=== PATIENT | female | born 1965 | race African-American/Black ===

== ENCOUNTER 2025-08-22 22:43 | Inpatient (IN) | payer OTHER ==
[~2025-08-22] VITALS: Ht 170.2 cm; Wt 59.1 kg
--- NOTE | 2025-08-22 23:26 | ED.PDOC ---
Sickle cell HPI Comments 59 y/o F, with a Hx of sickle cell and HTN, is BIBA for c/c of generalized body aches and abdominal pain. Patient reports on progressively worsening pain following initial, unprovoked and atraumatic onset 2x days ago. Pain is commented to feel similar to previous sickle cell crisis onset, which was 4x years ago. Denies any further acute symptoms. Per EMS personnel, patient was found hypertensive on scene, with a systolic pressure in 170's range. Chief Complaint: Abdominal Pain Time Seen by MD: 23:00 Reviewed Notes: Nurses Notes, Yard Conductor Notes, Medications, Allergies Information Source: Patient, Emergency Med Personnel Mode of Arrival: Ambulatory Severity: Moderate Timing: Days Duration: Since onset Prehospital treatment: 12 Lead EKG, Laser Cutter Past Medical History PAST MEDICAL HISTORY: HTN Past Medical History (Other): sickle cell Surgical History: Denies all surgeries RETAIL MARKETING COORDINATOR History: Denies all RETAIL MARKETING COORDINATOR Hx Family History Family History: Unknown Social History Smoker: Non-Smoker Alcohol: Denies ETOH Use Drugs: Denies Drug Use Lives In: Home All Other Systems: Reviewed and Negative (Comprehensive systems review obtained and negative except for what is stated in the HPI) Physical Exam General Appearance: Moderate Distress HEENT: Normal ENT Inspection, Pharynx Normal, TMs Normal Neck: Full Range of Motion, Non-Tender, Normal, Normal Inspection Respiratory: Chest Non-Tender, Lungs Clear, No Accessory Muscle Use, No Respiratory Distress, Normal Breath Sounds Cardiovascular: No Edema, No JVD, No Murmur, No Gallop, Normal Peripheral Pulses, Regular Rate/Rhythm Breast Exam: Deferred Gastrointestinal: No Organomegaly, Non Tender, No Pulsatile Mass, Normal Bowel Sounds, Soft Genitalia: Deferred Pelvic: Deferred Rectal: Deferred Extremities: No calf tenderness, Normal capillary refill, Normal inspection, Normal range of motion, Non-tender, No pedal edema Musculoskeletal : Apperance: Normal Neurologic: Alert, cell phone repair technician II-XII nml as Tested, No Motor Deficits, Normal Affect, Normal Mood, No Sensory Deficits Cerebellar Function: Normal Reflexes: Normal Skin: Dry, Normal Color, Warm Peripheral Pulses: 3+ Radial (R), 3+ Radial (L) Lymphatic: No Adenopathy Was a procedure done? Was a procedure done?: No Sickle cell Differential Dx Differential Diagnosis: Acute Chest Syndrome, Aplastic Crisis, Vasoocculsive Crisis, Meningitis, Osteomyelitis, Sepsis, Septic Arthritis X-Ray, Labs, Meds, VS Vital Signs Date Time Temp Pulse Resp B/P (MAP) Pulse Ox O2 Delivery O2 Flow Rate FiO2 08/23/25 02:47 182/84 08/23/25 02:18 97.7 80 19 178/85 (116) 90 97.7 08/23/25 02:15 18 88 Room Air* 0 21 08/23/25 00:11 67 18 151/85 08/22/25 22:51 99.0 147 20 52/113 96 99.0 08/22/25 22:43 97.8 86 20 127/86 99 97.8 Lab Test 08/23/25 01:08 Range/Units White Blood Count 7.4 4.4-10.8 10^3/uL Red Blood Count 2.54 L 4.0-5.20 10^6/uL Hemoglobin 9.7 L 12.2-16.2 g/dL Hematocrit 29.4 L 36.0-46.0 % Mean Corpuscular Volume 115.9 H 80.0-100.0 fL Mean Corpuscular Hemoglobin 38.1 H 28.0-32.0 pg Mean Corpuscular Hemoglobin Concent 32.9 32.0-36.0 g/dL Red Cell Distribution Width 17.9 H 11.8-14.3 % Platelet Count 235 140-450 10^3/uL Mean Platelet Volume 9.0 6.9-10.8 fL Neutrophils (%) (Auto) 70.3 37.0-80.0 % Lymphocytes (%) (Auto) 23.0 10.0-50.0 % Monocytes (%) (Auto) 2.3 0.0-12.0 % Eosinophils (%) (Auto) 1.3 0.0-7.0 % Basophils (%) (Auto) 3.1 H 0.0-2.0 % Neutrophils # (Auto) 5.2 1.6-8.6 10 ^3/uL Lymphocytes # (Auto) 1.7 0.4-5.4 10 ^3/uL Monocytes # (Auto) 0.2 0-1.3 10 ^3/uL Eosinophils # (Auto) 0.1 0-0.8 10 ^3/uL Basophils # (Auto) 0.2 0-0.2 10 ^3/uL Nucleated Red Blood Cells 2.1 % Reticulocyte Count (auto) 5.99 H 0.5-1.5 % Sodium Level 144 136-145 mmol/L Potassium Level 5.8 *H 3.5-5.1 mmol/L Chloride Level 114 H 98-107 mmol/L Carbon Dioxide Level 17 L 20-31 mmol/L Anion Gap 13 5-15 Blood Urea Nitrogen 56 H 9-23 mg/dL Creatinine 2.92 H 0.550-1.02 mg/dL Glomerular Filtration Rate Calc 18 >90 mL/min BUN/Creatinine Ratio 19.2 10.0-20.0 Serum Glucose 137 H 74-106 mg/dL Calcium Level 9.5 8.7-10.4 mg/dL Troponin I High Sensitivity 11 </=34 ng/L Current Medications Medications (Trade) Dose Ordered Sig/Shaista Route Start Time Stop Time Status Last Admin Ondansetron HCl (Zofran) 4 mg ONCE ONCE IV 08/22/25 23:15 08/22/25 23:16 DC 08/23/25 00:11 Sodium Chloride 1,000 ml @ 1,000 mls/hr Q1H ONCE IVB 08/22/25 23:15 08/23/25 00:14 DC 08/23/25 00:11 Morphine Sulfate 4 mg ONCE ONCE IV 08/22/25 23:15 08/22/25 23:16 DC 08/23/25 00:11 Sodium Chloride 1,000 ml @ 1,000 mls/hr Q1H ONCE IV 08/23/25 02:00 08/23/25 02:59 DC 08/23/25 02:47 Albuterol (Ventolin Medneb) 20 mg ONCE ONCE NEB 08/23/25 02:00 08/23/25 02:01 DC 08/23/25 02:26 Sodium Bicarbonate 50 ml ONCE ONCE IV 08/23/25 02:00 08/23/25 02:01 DC 08/23/25 02:47 Furosemide (Lasix Injection) 20 mg ONCE ONCE IV 08/23/25 02:00 08/23/25 02:01 DC 08/23/25 02:47 Calcium Gluconate/ Sodium Chloride 50 ml @ 120 mls/hr ONCE ONCE IV 08/23/25 02:00 08/23/25 02:24 DC 08/23/25 02:46 Zirconium Oxide (Lokelma) 10 gm ONCE ONCE PO 08/23/25 02:00 08/23/25 02:01 DC 08/23/25 02:46 Patient alert. Complaining of generalized body pain. Vitals stable. Answering questions. Establish intravenous access. Was given fluids. Was given morphine. Was given Zofran. Sickle cell crisis. Potassium elevated. BUN creatinine elevated. Acute kidney injury. Hyperkalemia treatment. Reticulocyte count elevated. Explained to the patient. Continue monitoring. [place] approved inpatient admission [id number]. Time of 1ST Reevaluation: 00:00 Reevaluation 1ST: Unchanged Patient Education/Counseling: Diagnosis, Treatment Family Education/Counseling: No Family Present Departure 1 Departure Time of Disposition: 23:32 Impression: Primary Impression: Sickle cell crisis Additional Impressions: Hyperkalemia Acute tubular necrosis Disposition: ADMITTED INPATIENT Admit to: Med Surg Condition: Guarded Critical Care Note Critical Care Time?: Yes (90 min-critical care time only) Stability Stability form required: No Heart Score Heart Score: Heart Score Response (Comments) Value History N/A 0 EKG N/A 0 Age N/A 0 Risk Factors N/A 0 Troponin N/A 0 Total 0 I personally scribed for VINCE CORRALES MD ([email or web address]) on 08/22/25 at 23:26. Electronically submitted by Kojo Arambula ([email or web address]). VINCE CORRALES MD Aug 22, 2025 23:26
[2025-08-23] MEDS: ONDANSETRON HCL 4 MG/2 ML VIAL IV ONE ×2 (00:11→04:12)
[2025-08-23] MEDS: MORPHINE SULFATE 4 MG/ML SYR/VIAL IV ONE (00:11)
[2025-08-23] MEDS: SODIUM CHLORIDE 0.9% 1,000 ML IVB ONE (00:11)
[2025-08-23 01:24] LABS: Hematocrit 29.4 % (36.0-46.0); Hemoglobin 9.7 g/dL (12.2-16.2); Mean Corpuscular Hemoglobin 38.1 pg (28.0-32.0); Mean Corpuscular Volume 115.9 fL (80.0-100.0); Nucleated Red Blood Cells % 2.1 %
[2025-08-23 01:31] LABS: Sodium 144 mmol/L (136-145)
[2025-08-23 01:32] LABS: Anion Gap 13 (5-15); Calcium 9.5 mg/dL (8.7-10.4)
[2025-08-23 01:37] LABS: BUN/Creatinine Ratio 19.2 (10.0-20.0)
[2025-08-23 01:40] LABS: Blood Urea Nitrogen 56 mg/dL (9-23); Carbon Dioxide 17 mmol/L (20-31); Chloride 114 mmol/L (98-107); Glucose 137 mg/dL (74-106)
[2025-08-23 01:42] LABS: Potassium 5.8 mmol/L (3.5-5.1)
[2025-08-23] MEDS: SODIUM CHLORIDE 0.9% 1,000 ML IV ONE ×3 (02:00→02:47)
[2025-08-23] MEDS: ALBUTEROL SULF 2.5 MG/0.5ML(0.5%) NEB SOLN NEB ONE (02:26)
[2025-08-23] MEDS: CALCIUM GLUC 1,000mg/50ml-NS 50 ML IV ONE (02:46)
[2025-08-23] MEDS: SODIUM ZIRCONIUM CYCL 10 GM PAK PO ONE (02:46)
[2025-08-23] MEDS: FUROSEMIDE 20 MG/2 ML VIAL IV ONE (02:47)
[2025-08-23] MEDS: SODIUM BICARB 8.4% 50Meq/50ml SYR INJ IV ONE (02:47)
[2025-08-23] MEDS: InsuLIN REG 1unit/0.01ml Soln (100units/ml) IV ONE (03:16)
[2025-08-23] MEDS: DEXTROSE (50%) 50ML SYRG IV ONE (03:20)
[2025-08-23] MEDS: HYDROmorphone HCL 2 MG/ML VL/or syr IV ONE (04:04)
[2025-08-23] MEDS ORDERED: MORPHINE SULFATE INJ 2 MG/ml SYRG IV PRN ×2 (04:30)
[2025-08-23] MEDS ORDERED: ACETAMINOPHEN 325 MG TAB PO PRN (04:30)
[2025-08-23] MEDS ORDERED: NITROGLYCERIN 0.4 MG SL TAB SL PRN (04:30)
--- NOTE | 2025-08-23 04:40 | DVHHP2 ---
History of Present Illness Reason for Visit: Sickle cell crisis History of Present Illness The patient is a 59-year-old female with past medical history of sickle cell anemia and hypertension who presented to [facility] with complaint of generalized weakness. Patient reports she has been experiencing generalized w eakness for the past 2 days, associated with abdominal pain, hypoxia, feeling similar to previous sickle cell crisis onset 4 years ago, getting worse today that prompted this visit. Patient was seen and evaluated in the ED, laboratory data shows WBC 7.4, hemoglobin 9.7, hematocrit 29.4, platelets 235, Retic count 5.99, sodium 144, potassium 5.8, BUN 26, creatinine 2.92, glucose 137, calcium 9.5, troponin 11, blood pressure 180/98 trending down to 118/67, heart rate 80, temperature 97.7 F, O2 saturation 98% on oxygen. Please see medication orders section in the computer. On my assessment, patient denied chest pain, dizziness, headache, diaphoresis, currently on oxygen, no abdominal pain, diarrhea, nausea, vomiting, no fever, no chills. Patient was admitted for further evaluation and medical management. Past Medical History HTN, Sickle cell Past Surgical History Denies all surgeries Family History Reviewed, noncontributory to the management of this case. Past Social History The patient lives at home, denies smoking, alcohol or illicit drugs abuse. Review of Systems Constitutional: Yes: Weakness; No: Fever, Chills, Sweats, Malaise, Other Eyes: No: Pain, Vision change, Conjunctivae inflammation, Eyelid inflammation, Other, Redness ENT: No: Ear pain, Ear discharge, Nose pain, Nose discharge, Nose congestion, Mouth pain, Mouth swelling, Throat pain, Throat swelling, Other Respiratory: Shortness of breath, Other (SOB at rest); No: Cough, Dry, SOB with excertion, Wheezing, Hemoptysis, Pleuritic Pain, Sputum, Wheezing Cardiovascular: No: Chest Pain, Palpitations, Orthopnea, Paroxysmal Noc. Dyspnea, Edema, Lt Headedness, Other Gastrointestinal: Abdominal Pain; No: Nausea, Vomiting, Diarrhea, Constipation, Melena, Hematochezia, Other Genitourinary: No Dysuria, No Frequency, No Incontinence, No Hematuria, No Retention, No Other Musculoskeletal: No: other, neck pain, shoulder pain, arm pain, back pain, hand pain, leg pain, foot pain Skin: No: Rash, Lesions, Jaundice, Bruising, Other Neurological: No: Weakness, Numbness, Incoordination, Change in speech, Confusion, Seizures, Other Allergies: Coded Allergies: NO KNOWN ALLERGIES (Unverified , 08/22/25) Exam Vital Signs Vital Signs Date Time Temp Pulse Resp B/P (MAP) Pulse Ox O2 Delivery O2 Flow Rate FiO2 08/23/25 04:04 107 15 180/98 08/23/25 02:18 97.7 90 97.7 08/23/25 02:15 Room Air* 0 21 General Appearance: Alert, Oriented X3, Cooperative, No acute distress HEENT: Atraumatic, PERRLA, EOMI, Mucous membr. moist/pink Respiratory: Normal air movement Cardiovascular: Regular rate, Normal S1, Normal S2, No murmurs Abdominal: Normal bowel sounds, Soft, No tenderness, No hepatospenomegaly, No masses Extremities: No clubbing, No cyanosis, No edema, Normal pulses, No tenderness/swelling Skin: No rashes, No breakdown, No significant lesion Neuro: Normal speech, Normal tone, Sensation intact, Cranial nerves 3-12 NL, Reflexes 2+, Other (Generalized weakness) Psych/Mental Status: Mental status NL, Mood NL Labs/Xrays Labs Test 08/23/25 03:11 08/23/25 01:08 Range/Units POC Glucose 208 H 70-106 mg/dl White Blood Count 7.4 4.4-10.8 10^3/uL Red Blood Count 2.54 L 4.0-5.20 10^6/uL Hemoglobin 9.7 L 12.2-16.2 g/dL Hematocrit 29.4 L 36.0-46.0 % Mean Corpuscular Volume 115.9 H 80.0-100.0 fL Mean Corpuscular Hemoglobin 38.1 H 28.0-32.0 pg Mean Corpuscular Hemoglobin Concent 32.9 32.0-36.0 g/dL Red Cell Distribution Width 17.9 H 11.8-14.3 % Platelet Count 235 140-450 10^3/uL Mean Platelet Volume 9.0 6.9-10.8 fL Neutrophils (%) (Auto) 70.3 37.0-80.0 % Lymphocytes (%) (Auto) 23.0 10.0-50.0 % Monocytes (%) (Auto) 2.3 0.0-12.0 % Eosinophils (%) (Auto) 1.3 0.0-7.0 % Basophils (%) (Auto) 3.1 H 0.0-2.0 % Neutrophils # (Auto) 5.2 1.6-8.6 10 ^3/uL Lymphocytes # (Auto) 1.7 0.4-5.4 10 ^3/uL Monocytes # (Auto) 0.2 0-1.3 10 ^3/uL Eosinophils # (Auto) 0.1 0-0.8 10 ^3/uL Basophils # (Auto) 0.2 0-0.2 10 ^3/uL Nucleated Red Blood Cells 2.1 % Reticulocyte Count (auto) 5.99 H 0.5-1.5 % Sodium Level 144 136-145 mmol/L Potassium Level 5.8 *H 3.5-5.1 mmol/L Chloride Level 114 H 98-107 mmol/L Carbon Dioxide Level 17 L 20-31 mmol/L Anion Gap 13 5-15 Blood Urea Nitrogen 56 H 9-23 mg/dL Creatinine 2.92 H 0.550-1.02 mg/dL Glomerular Filtration Rate Calc 18 >90 mL/min BUN/Creatinine Ratio 19.2 10.0-20.0 Serum Glucose 137 H 74-106 mg/dL Calcium Level 9.5 8.7-10.4 mg/dL Troponin I High Sensitivity 11 </=34 ng/L SEPSIS Sepsis Screen Date sepsis recognized/suspect: Aug 22, 2025 Time Sepsis recognized/suspect: 2254 Recent Procedure: No On Antibiotic Therapy: No Respiratory Rate >20: No Heart Rate >90: No Temp<36 C (96.8 F) or >38.3 C: No SBP <90 or MAP <65 mmHG: No New Acute Mental Status Change: No Is the patient on CPAP, BIPAP,: No Physician Orders Urinalysis (08/22/25 23:07) Sodium Chloride 0.9% (08/22/25 23:15) Sodium Chloride 0.9% (08/23/25 02:00) Potassium (08/23/25 05:48) Vital Signs Date Time Temp Pulse Resp B/P (MAP) Pulse Ox O2 Delivery O2 Flow Rate FiO2 08/23/25 04:04 107 15 180/98 08/23/25 02:47 182/84 08/23/25 02:18 97.7 80 19 178/85 (116) 90 97.7 08/23/25 02:15 18 88 Room Air* 0 21 08/23/25 00:11 67 18 151/85 08/22/25 22:51 99.0 147 20 52/113 96 99.0 08/22/25 22:43 97.8 86 20 127/86 99 97.8 Laboratory Tests Test 08/23/25 01:08 White Blood Count 7.4 10^3/uL (4.4-10.8) Medications Medications Dose Ordered Sig/Shaista Route Start Time Stop Time Status Last Admin Dose Admin Albuterol 20 mg ONCE ONCE NEB 08/23/25 02:00 08/23/25 02:01 DC 08/23/25 02:26 20 MG Calcium Gluconate/ Sodium Chloride 50 ml @ 120 mls/hr ONCE ONCE IV 08/23/25 02:00 08/23/25 02:24 DC 08/23/25 02:46 120 MLS/HR Dextrose 50 ml ONCE ONCE IV 08/23/25 02:00 08/23/25 02:01 DC 08/23/25 03:20 50 ML Furosemide 20 mg ONCE ONCE IV 08/23/25 02:00 08/23/25 02:01 ND 08/23/25 02:47 20 MG Hydromorphone HCl 1 mg ONCE ONCE IV 08/23/25 03:30 08/23/25 03:32 DC 08/23/25 04:04 1 MG Insulin Human Regular 10 units ONCE ONCE IV 08/23/25 02:00 08/23/25 02:01 ND 08/23/25 03:16 10 UNITS Morphine Sulfate 4 mg ONCE ONCE IV 08/22/25 23:15 08/22/25 23:16 DC 08/23/25 00:11 4 MG Ondansetron HCl 4 mg ONCE ONCE IV 08/22/25 23:15 08/22/25 23:16 DC 08/23/25 00:11 4 MG Ondansetron HCl 4 mg ONCE ONCE IV 08/23/25 04:15 08/23/25 04:16 DC 08/23/25 04:12 4 MG Sodium Bicarbonate 50 ml ONCE ONCE IV 08/23/25 02:00 08/23/25 02:01 DC 08/23/25 02:47 50 ML Sodium Chloride 1,000 ml @ 1,000 mls/hr Q1H ONCE IV 08/23/25 02:00 08/23/25 02:59 DC 08/23/25 02:47 1,000 MLS/HR Sodium Chloride 1,000 ml @ 1,000 mls/hr Q1H ONCE IVB 08/22/25 23:15 08/23/25 00:14 DC 08/23/25 00:11 1,000 MLS/HR Zirconium Oxide 10 gm ONCE ONCE PO 08/23/25 02:00 08/23/25 02:01 DC 08/23/25 02:46 10 GM Assessment/Plan Assessment/Plan Sickle cell crisis Hyperkalemia Hypoxemia Hypertensive urgency Acute tubular necrosis Generalized weakness Plan 1. Admit to telemetry unit 2. Breathing treatment 3. Pain control management 4. Management of fluids and electrolytes 5. Consultation for Nephrology/hospitalist 6. Diagnostic tests chest x-ray 7. DVT prophylaxis-on SCDs 8. Repeat labs CBC, CMP in a.m. 9. Continue with current medical management 10. Treatment plan discussed with patient and RN. Patient verbalized understanding. Plan discussed with: Patient, Other (RN) Problem List: (1) Sickle cell crisis (2) Hyperkalemia (3) Hypoxemia (4) Hypertensive urgency (5) Acute tubular necrosis (6) Generalized weakness Date of Service: Aug 23, 2025 Billing Provider: JENNIFER GUTIERREZ DNP Common Visit Codes: [id number] INP/OBS CARE (HIGH) JENNIFER GUTIERREZ DNP Aug 23, 2025 04:40
[2025-08-23 05:28] LABS: Hematocrit 26.7 % (36.0-46.0); Hemoglobin 8.8 g/dL (12.2-16.2); Mean Corpuscular Hemoglobin 37.3 pg (28.0-32.0); Mean Corpuscular Volume 113.2 fL (80.0-100.0); Nucleated Red Blood Cells % 1.8 %
[2025-08-23 05:45] LABS: Alanine Aminotransferase 27 U/L (7-40); Albumin 3.9 g/dL (3.2-4.8); Alkaline Phosphatase 109 U/L (46-116); Anion Gap 19 (5-15); BUN/Creatinine Ratio 16.3 (10.0-20.0); Calcium 9.5 mg/dL (8.7-10.4); Potassium 3.9 mmol/L (3.5-5.1); Total Protein 6.8 g/dL (5.7-8.2)
[2025-08-23 05:46] LABS: Bilirubin, Total 0.6 mg/dL (0.2-1.0)
[2025-08-23 05:48] LABS: Blood Urea Nitrogen 48 mg/dL (9-23); Carbon Dioxide 16 mmol/L (20-31); Chloride 111 mmol/L (98-107); Glucose 282 mg/dL (74-106); Sodium 146 mmol/L (136-145)
[2025-08-23] MEDS: SODIUM CHLOR 0.9% PF (SALINE LOCK) 10ML VIAL/SYR IV SCH (06:27)
[2025-08-23 08:26] VITALS: PULSE 82; RESP 12; O2SAT 100
[2025-08-23 08:29] LABS: Urine Protein, UAD 1+ (Negative)
[2025-08-23] MEDS: METOPROLOL TARTRATE 25 MG TAB PO SCH ×2 (11:19→18:56)
[2025-08-23] MEDS: HYDROcodone-ACET 5/325MG TAB PO PRN (11:19)
[2025-08-23] MEDS: ONDANSETRON HCL 4 MG/2 ML VIAL IV PRN (11:20)
[2025-08-23] MEDS: MORPHINE SULFATE 4 MG/ML SYR/VIAL IV PRN (16:11)
[2025-08-23] MEDS ORDERED: MORPHINE SULFATE 4 MG/ML SYR/VIAL IV PRN (16:15)
[2025-08-23] MEDS: SODIUM CHLORIDE 0.9% 1,000 ML IV SCH (16:45)
--- NOTE | 2025-08-23 16:55 | DVHINCON2 ---
Date of service: Aug 23, 2025 Referring Physician Philipp Mccoy Reason for Consultation ELBA History of Present Illness 59 Y/O F with history of Sickle cell anemia, and hypertension presented with chief complaint of generalized weakness and abdominal pain. She is hypertensive in the ER. labs signifcant for Cr: 2.92 mg/dl (Unknown baseline Cr), K: 5.8 mmol/l, and Hb: 8.8 g/dl. She is admitted for sickle cell crisis. She was given Normal saline, and Morphine for pain management. Nephrology consulted for ELBA Past Medical History Sickle cell anemia HTN Allergies: Coded Allergies: NO KNOWN ALLERGIES (Unverified , 08/22/25) Current Medications Current Medications Medications (Trade) Dose Ordered Sig/Shaista Route PRN Reason Start Time Stop Time Status Last Admin Hydroxyurea (Hydrea Capsule) 500 mg DAILY PO 08/23/25 10:08/23/25 11:23 Metoprolol Tartrate (Lopressor Tablet) 25 mg BID PO 08/23/25 10:00 08/23/25 11:19 Amlodipine Besylate (Norvasc Tablet) 5 mg DAILY PO 08/23/25 10:00 08/23/25 11:20 Hydralazine HCl (Apresoline Injection) 10 mg Q6HP PRN IV SBP>150 08/23/25 04:30 Sodium Chloride (Saline Lock Ns) 10 ml Q8HR IV 08/23/25 06:00 08/23/25 14:00 Acetaminophen/ Hydrocodone Bitart ([place] 5/325MG Tab) 1 tab Q4HP PRN PO MODERATE PAIN (4-6 PAIN SCALE) 08/23/25 04:30 08/23/25 11:19 Ondansetron HCl (Zofran) 4 mg Q4HP PRN IV NAUSEA / VOMITING 08/23/25 04:30 08/23/25 16:09 Docusate Sodium (Colace Capsule) 100 mg BIDPRN PRN PO FOR CONSTIPATION 08/23/25 04:30 Acetaminophen (Tylenol Tablet) 650 mg Q6HP PRN PO PAIN SCALE 1-3 OR TEMP>100.4 08/23/25 04:30 Morphine Sulfate 2 mg Q4HPRN PRN IV SEVERE PAIN (7-10 PAIN SCALE) 08/23/25 04:30 08/23/25 16:06 DC Nitroglycerin (Ntrostat Sublingual) 0.4 mg Q5MINP PRN SL FOR CHEST PAIN 08/23/25 04:30 Morphine Sulfate 2 mg Q30M PRN IV FOR CHEST PAIN 08/23/25 04:30 08/23/25 16:06 DC Morphine Sulfate 2 mg Q4HPRN PRN IV SEVERE PAIN (7-10 PAIN SCALE) 08/23/25 16:15 08/23/25 16:11 Morphine Sulfate 2 mg Q30M PRN IV FOR CHEST PAIN 08/23/25 16:15 Review of Systems as per HPI, all other systems were reviewed and are negative. H&P Exam Vital Signs/I&O Vital Sign Date Time Temp Pulse Resp B/P (MAP) Pulse Ox O2 Delivery O2 Flow Rate FiO2 08/23/25 16:11 81 18 181/92 08/23/25 12:17 100 08/23/25 08:26 Nasal Cannula* 2 28 08/23/25 02:18 97.7 97.7 Physical Exam Gen: NAD,AAOx3 HEENT: NC,AT Lungs: CTA b/l Cardiac: RRR, no murmur Abd: soft, no tenderness Ext: no edema Neuro: No focal deficits Labs/Diagnostic Data Labs/Diagnostic Data Laboratory Tests Test 08/23/25 08:18 08/23/25 05:00 08/23/25 03:11 08/23/25 01:08 Range/Units Urine Color Colorless Yellow Urine Clarity Clear Clear Urine pH 5.5 5.0-9.0 Urine Specific [place] 1.009 1.001-1.035 Urine Protein 1+ H Negative Urine Ketones Negative Negative Urine Blood Negative Negative /uL Urine Nitrite Negative Negative Urine Bilirubin Negative Negative Urine Urobilinogen Normal Negative mg/dL Urine Leukocyte Esterase 1+ Negative /uL Urine RBC <1 0 - 4 /hpf Urine Microscopic WBC 8 H 0-5 /HPF Urine Squamous Epithelial Cells Few <5 /hpf Urine Bacteria None seen None Seen /hpf Urine Glucose 1+ H Normal mg/dL White Blood Count 8.8 7.4 4.4-10.8 10^3/uL Red Blood Count 2.36 L 2.54 L 4.0-5.20 10^6/uL Hemoglobin 8.8 L 9.7 L 12.2-16.2 g/dL Hematocrit 26.7 L 29.4 L 36.0-46.0 % Mean Corpuscular Volume 113.2 H 115.9 H 80.0-100.0 fL Mean Corpuscular Hemoglobin 37.3 H 38.1 H 28.0-32.0 pg Mean Corpuscular Hemoglobin Concent 33.0 32.9 32.0-36.0 g/dL Red Cell Distribution Width 17.6 H 17.9 H 11.8-14.3 % Platelet Count 237 235 140-450 10^3/uL Mean Platelet Volume 9.3 9.0 6.9-10.8 fL Neutrophils (%) (Auto) 76.9 70.3 37.0-80.0 % Lymphocytes (%) (Auto) 13.3 23.0 10.0-50.0 % Monocytes (%) (Auto) 6.1 2.3 0.0-12.0 % Eosinophils (%) (Auto) 1.8 1.3 0.0-7.0 % Basophils (%) (Auto) 1.9 3.1 H 0.0-2.0 % Neutrophils # (Auto) 6.8 5.2 1.6-8.6 10 ^3/uL Lymphocytes # (Auto) 1.2 1.7 0.4-5.4 10 ^3/uL Monocytes # (Auto) 0.5 0.2 0-1.3 10 ^3/uL Eosinophils # (Auto) 0.2 0.1 0-0.8 10 ^3/uL Basophils # (Auto) 0.2 0.2 0-0.2 10 ^3/uL Nucleated Red Blood Cells 1.8 2.1 % Sodium Level 146 H 144 136-145 mmol/L Potassium Level 3.9 5.8 *H 3.5-5.1 mmol/L Chloride Level 111 H 114 H 98-107 mmol/L Carbon Dioxide Level 16 L 17 L 20-31 mmol/L Anion Gap 19 H 13 5-15 Blood Urea Nitrogen 48 H 56 H 9-23 mg/dL Creatinine 2.94 H 2.92 H 0.550-1.02 mg/dL Glomerular Filtration Rate Calc 18 18 >90 mL/min BUN/Creatinine Ratio 16.3 19.2 10.0-20.0 Serum Glucose 282 H 137 H 74-106 mg/dL Calcium Level 9.5 9.5 8.7-10.4 mg/dL Total Bilirubin 0.6 0.2-1.0 mg/dL Aspartate Amino Transferase (AST) 38 13-40 U/L Alanine Aminotransferase (ALT) 27 7-40 U/L Alkaline Phosphatase 109 46-116 U/L Total Protein 6.8 5.7-8.2 g/dL Albumin 3.9 3.2-4.8 g/dL POC Glucose 208 H 70-106 mg/dl Reticulocyte Count (auto) 5.99 H 0.5-1.5 % Troponin I High Sensitivity 11 </=34 ng/L Assessment Assessment: ELBA , multifactorial , ATN, intravascular hemolysis, and ischemia reperfusion injury Sickle cell crisis Uncontrolled hypertension Hyperkalemia, resolved Metabolic acidosis Acute on chronic anemia Plan: Continue NS at 125 cc/h Lasix prn for fluid overload Continue Amlodipine 5 mg daily Increase Metoprolol to 50 mg PO BID start sodium bicarb 650 mgh PO BID monitor H&H and transfuse if Hb < 7 g/dl pain control Oxygen Continue Hydroxyurea Start Folic acid daily BMP Strict I&Os Plan discussed with: Patient ABDOULAYE MATA MD Aug 23, 2025 16:55
[2025-08-23 19:03] VITALS: PULSE 73; RESP 18; O2SAT 99
[2025-08-23] MEDS: hydrALAZINE HCL 20 MG/ML VL IV PRN (20:25)
[2025-08-23 22:10] VITALS: BP 164/78; PULSE 75; RESP 19; TEMP 98.4; O2SAT 93
[2025-08-23 22:30] VITALS: PULSE 75; RESP 19; O2SAT 93
[2025-08-23 22:50] VITALS: BP 164/78; PULSE 75; RESP 19; TEMP 98.4; O2SAT 93
[2025-08-24] VITALS (8 sets, daily range): BP systolic 134–178; BP diastolic 71–99; PULSE 64–83; RESP 16–20; TEMP 97.9–98.4; O2SAT 95–100
[2025-08-24] MEDS ORDERED: ALLO100T PO (01:35)
[2025-08-24] MEDS ORDERED: FOLI-119 PO (01:35)
[2025-08-24] MEDS ORDERED: EPO2I IV (01:35)
[2025-08-24] MEDS ORDERED: PRED20TA2 PO (01:35)
[2025-08-24] MEDS ORDERED: HYDR500C3 PO (01:35)
[2025-08-24] MEDS ORDERED: BUDE1AER16 IN (01:35)
[2025-08-24] MEDS ORDERED: LOSA-533 PO (01:35)
[2025-08-24] MEDS ORDERED: ALBU2TAB11 PO (01:35)
[2025-08-24] MEDS ORDERED: CALC0.25 PO (01:35)
[2025-08-24] MEDS ORDERED: CHOL500021 OR (01:35)
[2025-08-24 06:26] LABS: Alanine Aminotransferase 24 U/L (7-40); Anion Gap 13 (5-15); BUN/Creatinine Ratio 16.8 (10.0-20.0); Carbon Dioxide 22 mmol/L (20-31); Glucose 98 mg/dL (74-106); Hemoglobin 9.3 g/dL (12.2-16.2); Mean Corpuscular Hemoglobin 36.9 pg (28.0-32.0); Potassium 4.8 mmol/L (3.5-5.1); Total Protein 7.3 g/dL (5.7-8.2)
[2025-08-24 06:27] LABS: Albumin 4.1 g/dL (3.2-4.8); Bilirubin, Total 0.9 mg/dL (0.2-1.0)
[2025-08-24 06:28] LABS: Alkaline Phosphatase 123 U/L (46-116); Blood Urea Nitrogen 51 mg/dL (9-23); Calcium 10.8 mg/dL (8.7-10.4); Chloride 114 mmol/L (98-107); Hematocrit 28.1 % (36.0-46.0); Mean Corpuscular Volume 110.8 fL (80.0-100.0); Sodium 149 mmol/L (136-145)
[2025-08-24 07:00] LABS: Nucleated Red Blood Cells % 6.0 %; Total Cells Counted 100.0 (100)
[2025-08-24] MEDS: ALLOPURINOL 100 MG TAB PO SCH (08:57)
[2025-08-24] MEDS: FOLIC ACID 1 MG TAB PO SCH (08:57)
[2025-08-24] MEDS: DOCUSATE SOD 100 MG CAP PO PRN (13:11)
--- NOTE | 2025-08-24 17:28 | DVHPN2 ---
Subjective Patient is here for sickle cell crisis currently on pain management. Changes from previous H/P or p: No Changes Eyes: No Pain, No Vision change, No Conjunctivae inflammation, No Eyelid inflammation, No Other, No Redness ENT: No Ear pain, No Ear discharge, No Nose pain, No Nose discharge, No Nose congestion, No Mouth pain, No Mouth swelling, No Throat pain, No Throat swelling, No Other Cardiovascular: No Chest Pain, No Palpitations, No Orthopnea, No Paroxysmal Noc. Dyspnea, No Edema, No Lt Headedness, No Other Respiratory: No Cough, No Dry; Shortness of breath; No SOB with excertion, No Wheezing, No Hemoptysis, No Pleuritic Pain, No Sputum; Other (SOB at rest) Gastrointestinal: No Nausea, No Vomiting; Abdominal Pain; No Diarrhea, No Constipation, No Melena, No Hematochezia, No Other Genitourinary: No Dysuria, No Frequency, No Incontinence, No Hematuria, No Retention, No Other Musculoskeletal: No other, No neck pain, No shoulder pain, No arm pain, No back pain, No hand pain, No leg pain, No foot pain Skin: No Rash, No Lesions, No Jaundice, No Bruising, No Other Objective Vitals Vital Signs Date Time Temp Pulse Resp B/P (MAP) Pulse Ox O2 Delivery O2 Flow Rate FiO2 08/24/25 13:41 68 18 128/68 08/24/25 13:00 98.1 95 98.1 08/24/25 09:00 Nasal Cannula* 3 32 Intake/Output Intake and Output 08/24/25 07:00 Intake Total 250 ml Balance 250 ml Intake Oral 250 ml # Voids 4 Exam HEENT pupils are reactive Neck is supple CV is S1-S2 regular rate and rhythm Respiratory diminished breath sound bases GI posterior bowel sound Extremity no edema [employer] no motor deficits Medications Current Medications Medications Dose Ordered Sig/Shaista Route Start Time Stop Time Status Last Admin Dose Admin Hydroxyurea 500 mg DAILY PO 08/23/25 10:08/24/25 13:01 500 MG Amlodipine Besylate 5 mg DAILY PO 08/23/25 10:00 08/24/25 08:58 5 MG Hydralazine HCl 10 mg Q6HP PRN IV 08/23/25 04:30 08/23/25 20:25 10 MG Sodium Chloride 10 ml Q8HR IV 08/23/25 06:00 08/24/25 14:00 10 ML Acetaminophen/ Hydrocodone Bitart 1 tab Q4HP PRN PO 08/23/25 04:30 08/24/25 16:22 1 TAB Ondansetron HCl 4 mg Q4HP PRN IV 08/23/25 04:30 08/24/25 16:22 4 MG Docusate Sodium 100 mg BIDPRN PRN PO 08/23/25 04:30 08/24/25 13:11 100 MG Acetaminophen 650 mg Q6HP PRN PO 08/23/25 04:30 Nitroglycerin 0.4 mg Q5MINP PRN SL 08/23/25 04:30 Morphine Sulfate 2 mg Q4HPRN PRN IV 08/23/25 16:15 08/24/25 13:11 2 MG Morphine Sulfate 2 mg Q30M PRN IV 08/23/25 16:15 Metoprolol Tartrate 50 mg BID PO 08/23/25 16:45 08/24/25 08:58 50 MG Sodium Chloride 1,000 ml @ 125 mls/hr Q8H IV 08/23/25 16:45 08/24/25 09:03 125 MLS/HR Allopurinol 100 mg DAILY PO 08/24/25 10:00 08/24/25 08:57 100 MG Folic Acid 1 mg DAILY PO 08/24/25 10:00 08/24/25 08:57 1 MG Patient Own Medication 1 MWF@2100 [place] 08/25/25 21:00 Laboratory Results Laboratory Tests 08/24/25 05:45 Chemistry Test 08/24/25 05:45 Albumin 4.1 g/dL (3.2-4.8) Calcium Level 10.8 mg/dL (8.7-10.4) H Total Protein 7.3 g/dL (5.7-8.2) LFT Test 08/24/25 05:45 Alanine Aminotransferase (ALT) 24 U/L (7-40) Alkaline Phosphatase 123 U/L (46-116) H Aspartate Amino Transferase (AST) 33 U/L (13-40) Total Bilirubin 0.9 mg/dL (0.2-1.0) Urinalysis Test 08/23/25 08:18 Urine Color Colorless (Yellow) Urine Clarity Clear (Clear) Urine pH 5.5 (5.0-9.0) Urine Specific [place] 1.009 (1.001-1.035) Urine Protein 1+ (Negative) H Urine Ketones Negative (Negative) Urine Blood Negative /uL (Negative) Urine Nitrite Negative (Negative) Urine Bilirubin Negative (Negative) Urine Urobilinogen Normal mg/dL (Negative) Urine Leukocyte Esterase 1+ /uL (Negative) Urine RBC <1 /hpf (0 - 4) Urine Microscopic WBC 8 /HPF (0-5) H Urine Squamous Epithelial Cells Few /hpf (<5) Urine Bacteria None seen /hpf (None Seen) Urine Glucose 1+ mg/dL (Normal) H Assessment/Plan Assessment/Plan 59-year-old female with a known history of hypertension, sickle cell anemia presented to the hospital with generalized weakness and also abdominal pain and hypoxia found to have 1. Acute sickle cell crisis with the underlying sickle cell anemia 2. Acute hypoxic respiratory failure secondary to sickle cell crisis, continue O2 supplementation has been as IV hydration 3. Acute kidney injury suspected secondary to vasomotor nephropathy/ATN with the underlying CKD stage 4 4. Hypertensive urgency 5. Metabolic acidosis secondary to acute kidney injury 6. Normocytic 7. Hyper natremia -continue IV fluids, O2 supplementation, pain management, hypotensive meds -nephrology consultation. Plan discussed with: Patient My Orders Orders - AYDIN GORDON MD Procedure Category Date Status Time Patients Own PHA 08/25/25 In Process Medication 21:00 Date of Service: Aug 24, 2025 Billing Provider: AYDIN GORDON MD Common Visit Codes: [id number] INP/OBS CARE(MOD) AYDIN GORDON MD Aug 24, 2025 17:28
--- NOTE | 2025-08-24 18:41 | DVHPN2 ---
Progress Note - Dictate Date Seen: Aug 24, 2025 Medical Necessity Reason Pt with a Central, PICC or Fol: No Subjective no new symptoms vital signs Vital Sign Date Time Temp Pulse Resp B/P (MAP) Pulse Ox O2 Delivery O2 Flow Rate FiO2 08/24/25 17:31 160/82 08/24/25 17:00 98.4 75 20 99 98.4 08/24/25 09:00 Nasal Cannula* 3 32 Total Intake and Output 08/23/25 08/23/25 08/24/25 15:00 23:00 07:00 Intake Total 0 ml 100 ml 150 ml Balance 0 ml 100 ml 150 ml medications Current Medications Medications Dose Ordered Sig/Shaista Route Start Time Stop Time Status Last Admin Dose Admin Hydroxyurea 500 mg DAILY PO 08/23/25 10:00 08/24/25 13:01 500 MG Amlodipine Besylate 5 mg DAILY PO 08/23/25 10:00 08/24/25 08:58 5 MG Hydralazine HCl 10 mg Q6HP PRN IV 08/23/25 04:30 08/24/25 17:31 10 MG Sodium Chloride 10 ml Q8HR IV 08/23/25 06:00 08/24/25 14:00 10 ML Acetaminophen/ Hydrocodone Bitart 1 tab Q4HP PRN PO 08/23/25 04:30 08/24/25 16:22 1 TAB Ondansetron HCl 4 mg Q4HP PRN IV 08/23/25 04:30 08/24/25 16:22 4 MG Docusate Sodium 100 mg BIDPRN PRN PO 08/23/25 04:30 08/24/25 13:11 100 MG Acetaminophen 650 mg Q6HP PRN PO 08/23/25 04:30 Nitroglycerin 0.4 mg Q5MINP PRN SL 08/23/25 04:30 Morphine Sulfate 2 mg Q4HPRN PRN IV 08/23/25 16:15 08/24/25 13:11 2 MG Morphine Sulfate 2 mg Q30M PRN IV 08/23/25 16:15 Metoprolol Tartrate 50 mg BID PO 08/23/25 16:45 08/24/25 08:58 50 MG Sodium Chloride 1,000 ml @ 125 mls/hr Q8H IV 08/23/25 16:45 08/24/25 17:31 125 MLS/HR Allopurinol 100 mg DAILY PO 08/24/25 10:00 08/24/25 08:57 100 MG Folic Acid 1 mg DAILY PO 08/24/25 10:00 08/24/25 08:57 1 MG Patient Own Medication 1 MWF@2100 [place] 08/25/25 21:00 objective ELBA , multifactorial , ATN, intravascular hemolysis, and ischemia reperfusion injury Sickle cell crisis Uncontrolled hypertension Hyperkalemia, resolved Metabolic acidosis Acute on chronic anemia Plan: Continue NS at 125 cc/h Lasix prn for fluid overload Continue Amlodipine 5 mg daily Increase Metoprolol to 50 mg PO BID start sodium bicarb 650 mgh PO BID monitor H&H and transfuse if Hb < 7 g/dl pain control Oxygen Continue Hydroxyurea Start Folic acid daily BMP Strict I&Os laboratory and microbiology Laboratory Tests 08/24/25 05:45 Test 08/24/25 05:45 Range/Units Serum Glucose 98 74-106 mg/dL Assessment/Plan Assessment: ELBA , multifactorial , ATN, intravascular hemolysis, and ischemia reperfusion injury CKD stage IV Sickle cell crisis Hypernatremia Uncontrolled hypertension Hyperkalemia, resolved Metabolic acidosis Acute on chronic anemia Plan: Change IVF to 1/2 NS at 100 cc/h Lasix prn for fluid overload Increase Amlodipine 10 mg daily Continue Metoprolol to 50 mg PO BID start sodium bicarb 650 mgh PO BID monitor H&H and transfuse if Hb < 7 g/dl pain control Oxygen Continue Hydroxyurea Start Folic acid daily BMP Strict I&Os Plan discussed with: Patient ABDOULAYE MATA MD Aug 24, 2025 18:41
[2025-08-24] MEDS: SOD CHL 0.45% 1,000 ML IV SCH (19:44)
[2025-08-24] MEDS: SODIUM BICARBONATE 650 MG TAB PO SCH (21:39)
[2025-08-25] VITALS (8 sets, daily range): BP systolic 116–172; BP diastolic 63–92; PULSE 70–98; RESP 16–20; TEMP 98–99.6; O2SAT 95–100
--- NOTE | 2025-08-25 15:34 | DVHPN2 ---
Progress Note - Dictate Date Seen: Aug 25, 2025 Medical Necessity Reason Pt with a Central, PICC or Fol: No Subjective no new symptoms vital signs Vital Sign Date Time Temp Pulse Resp B/P (MAP) Pulse Ox O2 Delivery O2 Flow Rate FiO2 08/25/25 13:00 98.3 70 20 122/68 (86) 98 98.3 08/25/25 08:00 Nasal Cannula* 3 32 Total Intake and Output 08/24/25 08/24/25 08/25/25 14:59 22:59 06:59 Intake Total 100 ml 1600 ml 400 ml Output Total 1000 ml 350 ml Balance 100 ml 600 ml 50 ml medications Current Medications Medications Dose Ordered Sig/Shaista Route Start Time Stop Time Status Last Admin Dose Admin Hydroxyurea 500 mg DAILY PO 08/23/25 10:00 08/25/25 09:33 500 MG Hydralazine HCl 10 mg Q6HP PRN IV 08/23/25 04:30 08/24/25 17:31 10 MG Sodium Chloride 10 ml Q8HR IV 08/23/25 06:00 08/25/25 15:26 10 ML Acetaminophen/ Hydrocodone Bitart 1 tab Q4HP PRN PO 08/23/25 04:30 08/25/25 15:20 1 TAB Ondansetron HCl 4 mg Q4HP PRN IV 08/23/25 04:30 08/25/25 15:21 4 MG Docusate Sodium 100 mg BIDPRN PRN PO 08/23/25 04:30 08/25/25 09:47 100 MG Acetaminophen 650 mg Q6HP PRN PO 08/23/25 04:30 Nitroglycerin 0.4 mg Q5MINP PRN SL 08/23/25 04:30 Morphine Sulfate 2 mg Q4HPRN PRN IV 08/23/25 16:15 08/25/25 05:11 2 MG Morphine Sulfate 2 mg Q30M PRN IV 08/23/25 16:15 Metoprolol Tartrate 50 mg BID PO 08/23/25 16:45 08/25/25 09:33 50 MG Allopurinol 100 mg DAILY PO 08/24/25 10:00 08/25/25 09:32 100 MG Folic Acid 1 mg DAILY PO 08/24/25 10:00 08/25/25 09:31 1 MG Patient Own Medication 1 MWF@2100 [place] 08/25/25 21:00 Sodium Chloride 1,000 ml @ 100 mls/hr Q10H IV 08/24/25 18:45 08/25/25 05:13 100 MLS/HR Sodium Bicarbonate 650 mg BID PO 08/24/25 22:00 08/25/25 09:31 650 MG Amlodipine Besylate 10 mg DAILY PO 08/25/25 10:00 08/25/25 09:32 10 MG objective ELBA , multifactorial , ATN, intravascular hemolysis, and ischemia reperfusion injury Sickle cell crisis Uncontrolled hypertension Hyperkalemia, resolved Metabolic acidosis Acute on chronic anemia Plan: Continue NS at 125 cc/h Lasix prn for fluid overload Continue Amlodipine 5 mg daily Increase Metoprolol to 50 mg PO BID start sodium bicarb 650 mgh PO BID monitor H&H and transfuse if Hb < 7 g/dl pain control Oxygen Continue Hydroxyurea Start Folic acid daily BMP Strict I&Os laboratory and microbiology Laboratory Tests 08/24/25 05:45 Test 08/24/25 05:45 Range/Units Serum Glucose 98 74-106 mg/dL Assessment/Plan Assessment: ELBA , multifactorial , ATN, intravascular hemolysis, and ischemia reperfusion injury CKD stage IV (Baseline GFR ~ 19 ml/min on recent outpatient labs at [facility]) Sickle cell crisis Hypernatremia Uncontrolled hypertension Hyperkalemia, resolved Metabolic acidosis Acute on chronic anemia Plan: Continue IVF to 1/2 NS at 100 cc/h Lasix prn for fluid overload Continue Amlodipine 10 mg daily Continue Metoprolol to 50 mg PO BID Continue sodium bicarb 650 mgh PO BID monitor H&H and transfuse if Hb < 7 g/dl pain control Oxygen Continue Hydroxyurea Continue Folic acid daily BMP Strict I&Os Plan discussed with: Patient ABDOULAYE MATA MD Aug 25, 2025 15:34
--- NOTE | 2025-08-25 17:01 | DVHPN2 ---
Subjective Overnight events noted patient is still complaining of lot of generalized body pain. Changes from previous H/P or p: No Changes Eyes: No Pain, No Vision change, No Conjunctivae inflammation, No Eyelid inflammation, No Other, No Redness ENT: No Ear pain, No Ear discharge, No Nose pain, No Nose discharge, No Nose congestion, No Mouth pain, No Mouth swelling, No Throat pain, No Throat swelling, No Other Cardiovascular: No Chest Pain, No Palpitations, No Orthopnea, No Paroxysmal Noc. Dyspnea, No Edema, No Lt Headedness, No Other Respiratory: No Cough, No Dry; Shortness of breath; No SOB with excertion, No Wheezing, No Hemoptysis, No Pleuritic Pain, No Sputum; Other (SOB at rest) Gastrointestinal: No Nausea, No Vomiting; Abdominal Pain; No Diarrhea, No Constipation, No Melena, No Hematochezia, No Other Genitourinary: No Dysuria, No Frequency, No Incontinence, No Hematuria, No Retention, No Other Musculoskeletal: No other, No neck pain, No shoulder pain, No arm pain, No back pain, No hand pain, No leg pain, No foot pain Skin: No Rash, No Lesions, No Jaundice, No Bruising, No Other Objective Vitals Vital Signs Date Time Temp Pulse Resp B/P (MAP) Pulse Ox O2 Delivery O2 Flow Rate FiO2 08/25/25 13:00 98.3 70 20 122/68 (86) 98 98.3 08/25/25 08:00 Nasal Cannula* 3 32 Intake/Output Intake and Output 08/25/25 07:00 Intake Total 2100 ml Output Total 1350 ml Balance 750 ml Intake Oral 900 ml IV Total 1200 ml Output Urine Total 350 ml Stool Total 1000 ml Medications Current Medications Medications Dose Ordered Sig/Shaista Route Start Time Stop Time Status Last Admin Dose Admin Hydroxyurea 500 mg DAILY PO 08/23/25 10:00 08/25/25 09:33 500 MG Hydralazine HCl 10 mg Q6HP PRN IV 08/23/25 04:30 08/24/25 17:31 10 MG Sodium Chloride 10 ml Q8HR IV 08/23/25 06:00 08/25/25 15:26 10 ML Acetaminophen/ Hydrocodone Bitart 1 tab Q4HP PRN PO 08/23/25 04:30 08/25/25 15:20 1 TAB Ondansetron HCl 4 mg Q4HP PRN IV 08/23/25 04:30 08/25/25 15:21 4 MG Docusate Sodium 100 mg BIDPRN PRN PO 08/23/25 04:30 08/25/25 09:47 100 MG Acetaminophen 650 mg Q6HP PRN PO 08/23/25 04:30 Nitroglycerin 0.4 mg Q5MINP PRN SL 08/23/25 04:30 Morphine Sulfate 2 mg Q4HPRN PRN IV 08/23/25 16:15 08/25/25 05:11 2 MG Morphine Sulfate 2 mg Q30M PRN IV 08/23/25 16:15 Metoprolol Tartrate 50 mg BID PO 08/23/25 16:45 08/25/25 09:33 50 MG Allopurinol 100 mg DAILY PO 08/24/25 10:00 08/25/25 09:32 100 MG Folic Acid 1 mg DAILY PO 08/24/25 10:00 08/25/25 09:31 1 MG Patient Own Medication 1 MWF@2100 [place] 08/25/25 21:00 Sodium Chloride 1,000 ml @ 100 mls/hr Q10H IV 08/24/25 18:45 08/25/25 05:13 100 MLS/HR Sodium Bicarbonate 650 mg BID PO 08/24/25 22:00 08/25/25 09:31 650 MG Amlodipine Besylate 10 mg DAILY PO 08/25/25 10:00 08/25/25 09:32 10 MG Laboratory Results Laboratory Tests 08/24/25 05:45 Urinalysis Test 08/23/25 08:18 Urine Color Colorless (Yellow) Urine Clarity Clear (Clear) Urine pH 5.5 (5.0-9.0) Urine Specific [place] 1.009 (1.001-1.035) Urine Protein 1+ (Negative) H Urine Ketones Negative (Negative) Urine Blood Negative /uL (Negative) Urine Nitrite Negative (Negative) Urine Bilirubin Negative (Negative) Urine Urobilinogen Normal mg/dL (Negative) Urine Leukocyte Esterase 1+ /uL (Negative) Urine RBC <1 /hpf (0 - 4) Urine Microscopic WBC 8 /HPF (0-5) H Urine Squamous Epithelial Cells Few /hpf (<5) Urine Bacteria None seen /hpf (None Seen) Urine Glucose 1+ mg/dL (Normal) H Assessment/Plan Assessment/Plan 59-year-old female with a known history of hypertension, sickle cell anemia presented to the hospital with generalized weakness and also abdominal pain and hypoxia found to have 1. Acute sickle cell crisis with the underlying sickle cell anemia 2. Acute hypoxic respiratory failure secondary to sickle cell crisis, continue O2 supplementation has been as IV hydration 3. Acute kidney injury suspected secondary to vasomotor nephropathy/ATN with the underlying CKD stage 4 4. Hypertensive urgency 5. Metabolic acidosis secondary to acute kidney injury 6. Normocytic 7. Hyper natremia -continue IV fluids, O2 supplementation, pain management, hold losartan continue Norvasc and metoprolol. Plan discussed with: Patient Date of Service: Aug 25, 2025 Billing Provider: AYDIN GORDON MD Common Visit Codes: [id number] INP/OBS CARE(MOD) AYDIN GORDON MD Aug 25, 2025 17:01
[2025-08-25] MEDS: EPOETIN ALFA 20000 UNIT SC SCH (20:50)
[2025-08-26] VITALS (9 sets, daily range): BP systolic 117–140; BP diastolic 60–82; PULSE 82–93; RESP 17–82; TEMP 97.4–100.5; O2SAT 93–100
--- NOTE | 2025-08-26 07:29 | DVHPN2 ---
Progress Note - Dictate Date Seen: Aug 26, 2025 Medical Necessity Reason Pt with a Central, PICC or Fol: No Subjective no new symptoms vital signs Vital Sign Date Time Temp Pulse Resp B/P (MAP) Pulse Ox O2 Delivery O2 Flow Rate FiO2 08/26/25 05:30 84 16 123/74 08/26/25 05:00 98.3 96 98.3 08/25/25 20:00 Nasal Cannula* 3 32 Total Intake and Output 08/25/25 08/25/25 08/26/25 15:00 23:00 07:00 Intake Total 1000 ml 800 ml Output Total 550 ml Balance 450 ml 800 ml medications Current Medications Medications Dose Ordered Sig/Shaista Route Start Time Stop Time Status Last Admin Dose Admin Hydroxyurea 500 mg DAILY PO 08/23/25 10:00 08/25/25 09:33 500 MG Hydralazine HCl 10 mg Q6HP PRN IV 08/23/25 04:30 08/26/25 04:01 10 MG Sodium Chloride 10 ml Q8HR IV 08/23/25 06:00 08/26/25 05:35 10 ML Acetaminophen/ Hydrocodone Bitart 1 tab Q4HP PRN PO 08/23/25 04:30 08/26/25 03:59 1 TAB Ondansetron HCl 4 mg Q4HP PRN IV 08/23/25 04:30 08/25/25 15:21 4 MG Docusate Sodium 100 mg BIDPRN PRN PO 08/23/25 04:30 08/25/25 09:47 100 MG Acetaminophen 650 mg Q6HP PRN PO 08/23/25 04:30 Nitroglycerin 0.4 mg Q5MINP PRN SL 08/23/25 04:30 Morphine Sulfate 2 mg Q4HPRN PRN IV 08/23/25 16:15 08/26/25 05:00 2 MG Morphine Sulfate 2 mg Q30M PRN IV 08/23/25 16:15 Metoprolol Tartrate 50 mg BID PO 08/23/25 16:45 08/25/25 20:48 50 MG Allopurinol 100 mg DAILY PO 08/24/25 10:00 08/25/25 09:32 100 MG Folic Acid 1 mg DAILY PO 08/24/25 10:00 08/25/25 09:31 1 MG Patient Own Medication 1 MWF@2100 [place] 08/25/25 21:00 08/25/25 20:50 1 Sodium Chloride 1,000 ml @ 100 mls/hr Q10H IV 08/24/25 18:45 08/26/25 00:55 100 MLS/HR Sodium Bicarbonate 650 mg BID PO 08/24/25 22:00 08/25/25 20:48 650 MG Amlodipine Besylate 10 mg DAILY PO 08/25/25 10:00 08/25/25 09:32 10 MG objective ELBA , multifactorial , ATN, intravascular hemolysis, and ischemia reperfusion injury Sickle cell crisis Uncontrolled hypertension Hyperkalemia, resolved Metabolic acidosis Acute on chronic anemia Plan: Continue NS at 125 cc/h Lasix prn for fluid overload Continue Amlodipine 5 mg daily Increase Metoprolol to 50 mg PO BID start sodium bicarb 650 mgh PO BID monitor H&H and transfuse if Hb < 7 g/dl pain control Oxygen Continue Hydroxyurea Start Folic acid daily BMP Strict I&Os laboratory and microbiology Laboratory Tests 08/24/25 05:45 Test 08/24/25 05:45 Range/Units Serum Glucose 98 74-106 mg/dL Assessment/Plan Assessment: ELBA , multifactorial , ATN, intravascular hemolysis, and ischemia reperfusion injury CKD stage IV (Baseline GFR ~ 19 ml/min on recent outpatient labs at [facility]) Sickle cell crisis Hypernatremia Uncontrolled hypertension Hyperkalemia, resolved Metabolic acidosis Acute on chronic anemia Plan: Decrease IVF to 1/2 NS to 60 cc/h Lasix prn for fluid overload Continue Amlodipine 10 mg daily Continue Metoprolol to 50 mg PO BID Continue sodium bicarb 650 mgh PO BID monitor H&H and transfuse if Hb < 7 g/dl pain control Oxygen Continue Hydroxyurea Continue Folic acid daily BMP Strict I&Os Plan discussed with: Patient ABDOULAYE MATA MD Aug 26, 2025 07:29
[2025-08-26] MEDS: SOD CHL 0.45% 1,000 ML IV SCH (07:30)
[2025-08-26 10:00] LABS: Potassium 4.2 mmol/L (3.5-5.1)
[2025-08-26 10:01] LABS: Anion Gap 13 (5-15); Calcium 10.3 mg/dL (8.7-10.4); Carbon Dioxide 22 mmol/L (20-31)
[2025-08-26 10:06] LABS: BUN/Creatinine Ratio 17.4 (10.0-20.0); Blood Urea Nitrogen 55 mg/dL (9-23); Chloride 115 mmol/L (98-107); Glucose 99 mg/dL (74-106); Sodium 150 mmol/L (136-145)
--- NOTE | 2025-08-26 17:26 | DVHPN2 ---
Subjective Overnight events noted patient is still complaining of lot of generalized body pain. Changes from previous H/P or p: No Changes Eyes: No Pain, No Vision change, No Conjunctivae inflammation, No Eyelid inflammation, No Other, No Redness ENT: No Ear pain, No Ear discharge, No Nose pain, No Nose discharge, No Nose congestion, No Mouth pain, No Mouth swelling, No Throat pain, No Throat swelling, No Other Cardiovascular: No Chest Pain, No Palpitations, No Orthopnea, No Paroxysmal Noc. Dyspnea, No Edema, No Lt Headedness, No Other Respiratory: No Cough, No Dry; Shortness of breath; No SOB with excertion, No Wheezing, No Hemoptysis, No Pleuritic Pain, No Sputum; Other (SOB at rest) Gastrointestinal: No Nausea, No Vomiting; Abdominal Pain; No Diarrhea, No Constipation, No Melena, No Hematochezia, No Other Genitourinary: No Dysuria, No Frequency, No Incontinence, No Hematuria, No Retention, No Other Musculoskeletal: No other, No neck pain, No shoulder pain, No arm pain, No back pain, No hand pain, No leg pain, No foot pain Skin: No Rash, No Lesions, No Jaundice, No Bruising, No Other Objective Vitals Vital Signs Date Time Temp Pulse Resp B/P (MAP) Pulse Ox O2 Delivery O2 Flow Rate FiO2 08/26/25 13:01 97.7 86 18 126/77 (93) 100 97.7 08/26/25 08:00 Nasal Cannula* 3 32 Intake/Output Intake and Output 08/26/25 07:00 Intake Total 1800 ml Output Total 550 ml Balance 1250 ml Intake Oral 1200 ml IV Total 600 ml Output Urine Total 550 ml # Voids 4 Exam HEENT pupils are reactive Neck is supple CV is S1-S2 regular rate and rhythm Respiratory diminished breath sound bases GI posterior bowel sound Extremity no edema KNOCKER OUT no motor deficits Medications Current Medications Medications Dose Ordered Sig/Shaista Route Start Time Stop Time Status Last Admin Dose Admin Hydroxyurea 500 mg DAILY PO 08/23/25 10:00 08/26/25 09:52 500 MG Hydralazine HCl 10 mg Q6HP PRN IV 08/23/25 04:30 08/26/25 04:01 10 MG Sodium Chloride 10 ml Q8HR IV 08/23/25 06:00 08/26/25 14:22 10 ML Acetaminophen/ Hydrocodone Bitart 1 tab Q4HP PRN PO 08/23/25 04:30 08/26/25 11:37 1 TAB Ondansetron HCl 4 mg Q4HP PRN IV 08/23/25 04:30 08/25/25 15:21 4 MG Docusate Sodium 100 mg BIDPRN PRN PO 08/23/25 04:30 08/25/25 09:47 100 MG Acetaminophen 650 mg Q6HP PRN PO 08/23/25 04:30 Nitroglycerin 0.4 mg Q5MINP PRN SL 08/23/25 04:30 Morphine Sulfate 2 mg Q4HPRN PRN IV 08/23/25 16:15 08/26/25 09:52 2 MG Morphine Sulfate 2 mg Q30M PRN IV 08/23/25 16:15 Metoprolol Tartrate 50 mg BID PO 08/23/25 16:45 08/26/25 09:53 50 MG Allopurinol 100 mg DAILY PO 08/24/25 10:00 08/26/25 09:52 100 MG Folic Acid 1 mg DAILY PO 08/24/25 10:00 08/26/25 09:53 1 MG Patient Own Medication 1 MWF@2100 [place] 08/25/25 21:00 08/25/25 20:50 1 Sodium Bicarbonate 650 mg BID PO 08/24/25 22:00 08/26/25 09:53 650 MG Amlodipine Besylate 10 mg DAILY PO 08/25/25 10:00 08/26/25 09:54 10 MG Sodium Chloride 1,000 ml @ 60 mls/hr [id number] IV 08/26/25 07:30 08/26/25 07:30 60 MLS/HR Laboratory Results Laboratory Tests 08/24/25 05:45 08/26/25 05:25 Chemistry Test 08/26/25 05:25 Calcium Level 10.3 mg/dL (8.7-10.4) Urinalysis Test 08/23/25 08:18 Urine Color Colorless (Yellow) Urine Clarity Clear (Clear) Urine pH 5.5 (5.0-9.0) Urine Specific [place] 1.009 (1.001-1.035) Urine Protein 1+ (Negative) H Urine Ketones Negative (Negative) Urine Blood Negative /uL (Negative) Urine Nitrite Negative (Negative) Urine Bilirubin Negative (Negative) Urine Urobilinogen Normal mg/dL (Negative) Urine Leukocyte Esterase 1+ /uL (Negative) Urine RBC <1 /hpf (0 - 4) Urine Microscopic WBC 8 /HPF (0-5) H Urine Squamous Epithelial Cells Few /hpf (<5) Urine Bacteria None seen /hpf (None Seen) Urine Glucose 1+ mg/dL (Normal) H Assessment/Plan Assessment/Plan 59-year-old female with a known history of hypertension, sickle cell anemia presented to the hospital with generalized weakness and also abdominal pain and hypoxia found to have 1. Acute sickle cell crisis with the underlying sickle cell anemia 2. Acute hypoxic respiratory failure secondary to sickle cell crisis, continue O2 supplementation has been as IV hydration 3. Acute kidney injury suspected secondary to vasomotor nephropathy/ATN with the underlying CKD stage 4 4. Hypertensive urgency 5. Metabolic acidosis secondary to acute kidney injury 6. Normocytic 7. Hyper natremia -continue IV fluids, O2 supplementation, pain management, hold losartan continue Norvasc and metoprolol. Plan discussed with: Patient My Orders Orders - AYDIN GORDON MD Procedure Category Date Status Time Complete Blood Count LAB 08/27/25 Verified 04:00 Date of Service: Aug 26, 2025 Billing Provider: AYDIN GORDON MD Common Visit Codes: [id number] INP/OBS CARE(MOD) AYDIN GORDON MD Aug 26, 2025 17:26
[2025-08-27] VITALS (8 sets, daily range): BP systolic 109–137; BP diastolic 63–82; PULSE 73–99; RESP 17–82; TEMP 97.1–98.7; O2SAT 90–100
[2025-08-27 05:56] LABS: Potassium 4.3 mmol/L (3.5-5.1)
[2025-08-27 05:57] LABS: Anion Gap 13 (5-15); Carbon Dioxide 22 mmol/L (20-31)
[2025-08-27 05:58] LABS: Calcium 10.2 mg/dL (8.7-10.4)
[2025-08-27 06:03] LABS: BUN/Creatinine Ratio 16.4 (10.0-20.0); Glucose 98 mg/dL (74-106)
[2025-08-27 06:14] LABS: Blood Urea Nitrogen 55 mg/dL (9-23); Chloride 115 mmol/L (98-107); Sodium 150 mmol/L (136-145)
[2025-08-27 07:12] LABS: Hematocrit 20.8 % (36.0-46.0); Hemoglobin 7.2 g/dL (12.2-16.2); Mean Corpuscular Hemoglobin 37.5 pg (28.0-32.0); Mean Corpuscular Volume 108.4 fL (80.0-100.0)
[2025-08-27 08:08] LABS: Total Cells Counted 100.0 (100)
[2025-08-27 08:09] LABS: Anisocytosis Slight; Nucleated Red Blood Cells % 5.0 %; Stomatocytes Few
--- NOTE | 2025-08-27 17:03 | DVHPN2 ---
Subjective Overnight events noted patient is still complaining of lot of generalized body pain. Changes from previous H/P or p: No Changes Eyes: No Pain, No Vision change, No Conjunctivae inflammation, No Eyelid inflammation, No Other, No Redness ENT: No Ear pain, No Ear discharge, No Nose pain, No Nose discharge, No Nose congestion, No Mouth pain, No Mouth swelling, No Throat pain, No Throat swelling, No Other Cardiovascular: No Chest Pain, No Palpitations, No Orthopnea, No Paroxysmal Noc. Dyspnea, No Edema, No Lt Headedness, No Other Respiratory: No Cough, No Dry; Shortness of breath; No SOB with excertion, No Wheezing, No Hemoptysis, No Pleuritic Pain, No Sputum; Other (SOB at rest) Gastrointestinal: No Nausea, No Vomiting; Abdominal Pain; No Diarrhea, No Constipation, No Melena, No Hematochezia, No Other Genitourinary: No Dysuria, No Frequency, No Incontinence, No Hematuria, No Retention, No Other Musculoskeletal: No other, No neck pain, No shoulder pain, No arm pain, No back pain, No hand pain, No leg pain, No foot pain Skin: No Rash, No Lesions, No Jaundice, No Bruising, No Other Objective Vitals Vital Signs Date Time Temp Pulse Resp B/P (MAP) Pulse Ox O2 Delivery O2 Flow Rate FiO2 08/27/25 13:00 97.7 83 17 118/70 (86) 93 97.7 08/27/25 08:00 Nasal Cannula* 3 32 Intake/Output Intake and Output 08/27/25 07:00 Intake Total 800 ml Output Total 1100 ml Balance -300 ml Intake Oral 800 ml Output Urine Total 1100 ml # Voids 2 # Bowel Movements 2 Exam HEENT pupils are reactive Neck is supple CV is S1-S2 regular rate and rhythm Respiratory diminished breath sound bases GI posterior bowel sound Extremity no edema [employer] no motor deficits Medications Current Medications Medications Dose Ordered Sig/Shaista Route Start Time Stop Time Status Last Admin Dose Admin Hydroxyurea 500 mg DAILY PO 08/23/25 10:00 08/27/25 09:37 500 MG Hydralazine HCl 10 mg Q6HP PRN IV 08/23/25 04:30 08/26/25 04:01 10 MG Sodium Chloride 10 ml Q8HR IV 08/23/25 06:00 08/27/25 14:07 10 ML Acetaminophen/ Hydrocodone Bitart 1 tab Q4HP PRN PO 08/23/25 04:30 08/26/25 21:26 1 TAB Ondansetron HCl 4 mg Q4HP PRN IV 08/23/25 04:30 08/25/25 15:21 4 MG Docusate Sodium 100 mg BIDPRN PRN PO 08/23/25 04:30 08/25/25 09:47 100 MG Acetaminophen 650 mg Q6HP PRN PO 08/23/25 04:30 Nitroglycerin 0.4 mg Q5MINP PRN SL 08/23/25 04:30 Morphine Sulfate 2 mg Q4HPRN PRN IV 08/23/25 16:15 08/26/25 09:52 2 MG Morphine Sulfate 2 mg Q30M PRN IV 08/23/25 16:15 Metoprolol Tartrate 50 mg BID PO 08/23/25 16:45 08/27/25 09:36 50 MG Allopurinol 100 mg DAILY PO 08/24/25 10:00 08/27/25 09:37 100 MG Folic Acid 1 mg DAILY PO 08/24/25 10:00 08/27/25 09:35 1 MG Patient Own Medication 1 MWF@2100 SC 08/25/25 21:00 08/25/25 20:50 1 Sodium Bicarbonate 650 mg BID PO 08/24/25 22:00 08/27/25 09:35 650 MG Amlodipine Besylate 10 mg DAILY PO 08/25/25 10:00 08/27/25 09:37 10 MG Sodium Chloride 1,000 ml @ 60 mls/hr [id number] IV 08/26/25 07:30 08/26/25 23:57 60 MLS/HR Laboratory Results Laboratory Tests 08/27/25 05:14 Chemistry Test 08/27/25 05:14 Calcium Level 10.2 mg/dL (8.7-10.4) Urinalysis Test 08/23/25 08:18 Urine Color Colorless (Yellow) Urine Clarity Clear (Clear) Urine pH 5.5 (5.0-9.0) Urine Specific [place] 1.009 (1.001-1.035) Urine Protein 1+ (Negative) H Urine Ketones Negative (Negative) Urine Blood Negative /uL (Negative) Urine Nitrite Negative (Negative) Urine Bilirubin Negative (Negative) Urine Urobilinogen Normal mg/dL (Negative) Urine Leukocyte Esterase 1+ /uL (Negative) Urine RBC <1 /hpf (0 - 4) Urine Microscopic WBC 8 /HPF (0-5) H Urine Squamous Epithelial Cells Few /hpf (<5) Urine Bacteria None seen /hpf (None Seen) Urine Glucose 1+ mg/dL (Normal) H Assessment/Plan Assessment/Plan 59-year-old female with a known history of hypertension, sickle cell anemia presented to the hospital with generalized weakness and also abdominal pain and hypoxia found to have 1. Acute sickle cell crisis with the underlying sickle cell anemia 2. Acute hypoxic respiratory failure secondary to sickle cell crisis, continue O2 supplementation has been as IV hydration 3. Acute kidney injury suspected secondary to vasomotor nephropathy/ATN with the underlying CKD stage 4 4. Hypertensive urgency 5. Metabolic acidosis secondary to acute kidney injury 6. Normocytic anemia 7. Hyper natremia, improved -continue IV fluids, O2 supplementation, pain management, hold losartan continue Norvasc and metoprolol. Plan discussed with: Patient Date of Service: Aug 27, 2025 Billing Provider: AYDIN GORDON MD Common Visit Codes: [id number] INP/OBS CARE(MOD) AYDIN GORDON MD Aug 27, 2025 17:03
[2025-08-27] MEDS: D5W 5% 1,000 ML IV SCH (18:06)
--- NOTE | 2025-08-27 19:19 | DVHPN2 ---
Progress Note - Dictate Date Seen: Aug 27, 2025 Medical Necessity Reason Pt with a Central, PICC or Fol: No Subjective no new symptoms vital signs Vital Sign Date Time Temp Pulse Resp B/P (MAP) Pulse Ox O2 Delivery O2 Flow Rate FiO2 08/27/25 17:25 98.2 75 18 124/64 (84) 95 98.2 08/27/25 08:00 Nasal Cannula* 3 32 Total Intake and Output 08/26/25 08/26/25 08/27/25 15:00 23:00 07:00 Intake Total 600 ml 200 ml Output Total 400 ml 700 ml Balance 200 ml -500 ml medications Current Medications Medications Dose Ordered Sig/Shaista Route Start Time Stop Time Status Last Admin Dose Admin Hydroxyurea 500 mg DAILY PO 08/23/25 10:00 08/27/25 09:37 500 MG Hydralazine HCl 10 mg Q6HP PRN IV 08/23/25 04:30 08/26/25 04:01 10 MG Sodium Chloride 10 ml Q8HR IV 08/23/25 06:00 08/27/25 14:07 10 ML Acetaminophen/ Hydrocodone Bitart 1 tab Q4HP PRN PO 08/23/25 04:30 08/26/25 21:26 1 TAB Ondansetron HCl 4 mg Q4HP PRN IV 08/23/25 04:30 08/25/25 15:21 4 MG Docusate Sodium 100 mg BIDPRN PRN PO 08/23/25 04:30 08/25/25 09:47 100 MG Acetaminophen 650 mg Q6HP PRN PO 08/23/25 04:30 Nitroglycerin 0.4 mg Q5MINP PRN SL 08/23/25 04:30 Morphine Sulfate 2 mg Q4HPRN PRN IV 08/23/25 16:15 08/26/25 09:52 2 MG Morphine Sulfate 2 mg Q30M PRN IV 08/23/25 16:15 Metoprolol Tartrate 50 mg BID PO 08/23/25 16:45 08/27/25 09:36 50 MG Allopurinol 100 mg DAILY PO 08/24/25 10:00 08/27/25 09:37 100 MG Folic Acid 1 mg DAILY PO 08/24/25 10:00 08/27/25 09:35 1 MG Patient Own Medication 1 MWF@2100 [place] 08/25/25 21:00 08/25/25 20:50 1 Sodium Bicarbonate 650 mg BID PO 08/24/25 22:00 08/27/25 09:35 650 MG Amlodipine Besylate 10 mg DAILY PO 08/25/25 10:00 08/27/25 09:37 10 MG Dextrose 1,000 ml @ 75 mls/hr [id number] IV 08/27/25 17:45 08/27/25 18:06 75 MLS/HR objective ELBA , multifactorial , ATN, intravascular hemolysis, and ischemia reperfusion injury Sickle cell crisis Uncontrolled hypertension Hyperkalemia, resolved Metabolic acidosis Acute on chronic anemia Plan: Continue NS at 125 cc/h Lasix prn for fluid overload Continue Amlodipine 5 mg daily Increase Metoprolol to 50 mg PO BID start sodium bicarb 650 mgh PO BID monitor H&H and transfuse if Hb < 7 g/dl pain control Oxygen Continue Hydroxyurea Start Folic acid daily BMP Strict I&Os laboratory and microbiology Laboratory Tests 08/27/25 05:14 Test 08/27/25 05:14 Range/Units Serum Glucose 98 74-106 mg/dL Assessment/Plan Assessment: ELBA , multifactorial , ATN, intravascular hemolysis, and ischemia reperfusion injury CKD stage IV (Baseline GFR ~ 19 ml/min on recent outpatient labs at [place]) Sickle cell crisis Hypernatremia Uncontrolled hypertension Hyperkalemia, resolved Metabolic acidosis Acute on chronic anemia Plan: Change IVF to D5W at 75 cc/h Lasix prn for fluid overload Continue Amlodipine 10 mg daily Continue Metoprolol to 50 mg PO BID Continue sodium bicarb 650 mgh PO BID monitor H&H and transfuse if Hb < 7 g/dl pain control Oxygen Continue Hydroxyurea Continue Folic acid daily BMP Strict I&Os Plan discussed with: Patient, Spouse ABDOULAYE MATA MD Aug 27, 2025 19:19
[2025-08-27] MEDS ORDERED: EPOETIN ALFA 20000 UNIT SC SCH (21:00)
[2025-08-28 01:00] VITALS: BP 115/60; PULSE 65; RESP 19; TEMP 98.2; O2SAT 100
[2025-08-28 05:00] VITALS: BP 141/72; PULSE 65; RESP 20; TEMP 97.9; O2SAT 100
--- NOTE | 2025-08-28 07:14 | DVHPN2 ---
Progress Note - Dictate Date Seen: Aug 28, 2025 Medical Necessity Reason Pt with a Central, PICC or Fol: No Subjective no new symptoms vital signs Vital Sign Date Time Temp Pulse Resp B/P (MAP) Pulse Ox O2 Delivery O2 Flow Rate FiO2 08/28/25 05:00 97.9 65 20 141/72 (95) 100 97.9 08/27/25 20:00 Nasal Cannula* 2 28 Total Intake and Output 08/27/25 08/27/25 08/28/25 15:00 23:00 07:00 Intake Total 400 ml 1360 ml Output Total 1200 ml Balance -800 ml 1360 ml medications Current Medications Medications Dose Ordered Sig/Shaista Route Start Time Stop Time Status Last Admin Dose Admin Hydroxyurea 500 mg DAILY PO 08/23/25 10:00 08/27/25 09:37 500 MG Hydralazine HCl 10 mg Q6HP PRN IV 08/23/25 04:30 08/26/25 04:01 10 MG Sodium Chloride 10 ml Q8HR IV 08/23/25 06:00 08/28/25 05:24 10 ML Acetaminophen/ Hydrocodone Bitart 1 tab Q4HP PRN PO 08/23/25 04:30 08/26/25 21:26 1 TAB Ondansetron HCl 4 mg Q4HP PRN IV 08/23/25 04:30 08/25/25 15:21 4 MG Docusate Sodium 100 mg BIDPRN PRN PO 08/23/25 04:30 08/25/25 09:47 100 MG Acetaminophen 650 mg Q6HP PRN PO 08/23/25 04:30 Nitroglycerin 0.4 mg Q5MINP PRN SL 08/23/25 04:30 Morphine Sulfate 2 mg Q4HPRN PRN IV 08/23/25 16:15 08/26/25 09:52 2 MG Morphine Sulfate 2 mg Q30M PRN IV 08/23/25 16:15 Metoprolol Tartrate 50 mg BID PO 08/23/25 16:45 08/27/25 21:32 50 MG Allopurinol 100 mg DAILY PO 08/24/25 10:00 08/27/25 09:37 100 MG Folic Acid 1 mg DAILY PO 08/24/25 10:00 08/27/25 09:35 1 MG Patient Own Medication 1 MWF@2100 [place] 08/25/25 21:00 08/27/25 21:02 1 Sodium Bicarbonate 650 mg BID PO 08/24/25 22:00 08/27/25 21:32 650 MG Amlodipine Besylate 10 mg DAILY PO 08/25/25 10:00 08/27/25 09:37 10 MG Dextrose 1,000 ml @ 75 mls/hr [id number] IV 08/27/25 17:45 08/28/25 06:06 75 MLS/HR objective ELBA , multifactorial , ATN, intravascular hemolysis, and ischemia reperfusion injury Sickle cell crisis Uncontrolled hypertension Hyperkalemia, resolved Metabolic acidosis Acute on chronic anemia Plan: Continue NS at 125 cc/h Lasix prn for fluid overload Continue Amlodipine 5 mg daily Increase Metoprolol to 50 mg PO BID start sodium bicarb 650 mgh PO BID monitor H&H and transfuse if Hb < 7 g/dl pain control Oxygen Continue Hydroxyurea Start Folic acid daily BMP Strict I&Os laboratory and microbiology Laboratory Tests 08/27/25 05:14 Test 08/27/25 05:14 Range/Units Serum Glucose 98 74-106 mg/dL Assessment/Plan Assessment: ELBA , multifactorial , ATN, intravascular hemolysis, and ischemia reperfusion injury CKD stage IV (Baseline GFR ~ 19 ml/min on recent outpatient labs at [place]) Sickle cell crisis Hypernatremia Uncontrolled hypertension Hyperkalemia, resolved Metabolic acidosis Acute on chronic anemia Plan: Continue D5W at 75 cc/h Lasix prn for fluid overload Continue Amlodipine 10 mg daily Continue Metoprolol to 50 mg PO BID Continue sodium bicarb 650 mgh PO BID monitor H&H and transfuse if Hb < 7 g/dl pain control Oxygen Continue Hydroxyurea Continue Folic acid daily BMP Strict I&Os Plan discussed with: Patient ABDOULAYE MATA MD Aug 28, 2025 07:14
[2025-08-28 08:00] VITALS: PULSE 61
[2025-08-28 09:00] VITALS: BP 121/71; PULSE 63; RESP 19; TEMP 98.1; O2SAT 100
[2025-08-28 13:00] VITALS: BP 128/74; PULSE 67; RESP 18; TEMP 99.2; O2SAT 100
[2025-08-28] MEDS ORDERED: HYDR-4902 PO (16:35)
[2025-08-28] MEDS ORDERED: MET25T PO (16:35)
[2025-08-28] MEDS ORDERED: AML5T PO (16:35)
--- NOTE | 2025-08-28 16:40 | DVHDS2 ---
Discharge Summary Date of Admission Aug 23, 2025 at 04:29 Date of Discharge: Aug 28, 2025 Labs/Diagnostic Data: Laboratory Results Test 08/27/25 05:14 08/24/25 05:45 08/23/25 08:18 08/23/25 05:00 White Blood Count 9.8 10^3/uL (4.4-10.8) Red Blood Count 1.92 10^6/uL (4.0-5.20) Hemoglobin 7.2 g/dL (12.2-16.2) Hematocrit 20.8 % (36.0-46.0) Mean Corpuscular Volume 108.4 fL (80.0-100.0) Mean Corpuscular Hemoglobin 37.5 pg (28.0-32.0) Mean Corpuscular Hemoglobin Concent 34.6 g/dL (32.0-36.0) Red Cell Distribution Width 19.7 % (11.8-14.3) Platelet Count 153 10^3/uL (140-450) Mean Platelet Volume 9.4 fL (6.9-10.8) Neutrophils (%) (Auto) % (37.0-80.0) Lymphocytes (%) (Auto) % (10.0-50.0) Monocytes (%) (Auto) % (0.0-12.0) Basophils (%) (Auto) % (0.0-2.0) Neutrophils # (Auto) 10 ^3/uL (1.6-8.6) Lymphocytes # (Auto) 10 ^3/uL (0.4-5.4) Monocytes # (Auto) 10 ^3/uL (0-1.3) Differential Total Cells Counted 100.0 (100) Neutrophils % (Manual) 73 (37.0-80.0) Band Neutrophils % (Manual) 1 Lymphocytes % (Manual) 18 (10.0-50.0) Monocytes % (Manual) 7 (0-12) Eosinophils % (Manual) 1 (0-7) Basophils % (Manual) 0 (0.0-2.0) Metamyelocytes % (manual) 0 Myelocytes % (Manual) 0 Promyelocytes % (Manual) 0 Blast Cells % (Manual) 0 Nucleated Red Blood Cells 5.0 % Reactive Lymphocytes 0 Platelet Estimate Adequate Anisocytosis (manual) Slight Target Cells Few Stomatocytes Few Sodium Level 150 mmol/L (136-145) Potassium Level 4.3 mmol/L (3.5-5.1) Chloride Level 115 mmol/L (98-107) Carbon Dioxide Level 22 mmol/L (20-31) Anion Gap 13 (5-15) Blood Urea Nitrogen 55 mg/dL (9-23) Creatinine 3.36 mg/dL (0.550-1.02) Glomerular Filtration Rate Calc 15 mL/min (>90) BUN/Creatinine Ratio 16.4 (10.0-20.0) Serum Glucose 98 mg/dL (74-106) Calcium Level 10.2 mg/dL (8.7-10.4) Large Platelets Few Total Bilirubin 0.9 mg/dL (0.2-1.0) Aspartate Amino Transferase (AST) 33 U/L (13-40) Alanine Aminotransferase (ALT) 24 U/L (7-40) Alkaline Phosphatase 123 U/L (46-116) Total Protein 7.3 g/dL (5.7-8.2) Albumin 4.1 g/dL (3.2-4.8) Urine Color Colorless (Yellow) Urine Clarity Clear (Clear) Urine pH 5.5 (5.0-9.0) Urine Specific [place] 1.009 (1.001-1.035) Urine Protein 1+ (Negative) Urine Ketones Negative (Negative) Urine Blood Negative /uL (Negative) Urine Nitrite Negative (Negative) Urine Bilirubin Negative (Negative) Urine Urobilinogen Normal mg/dL (Negative) Urine Leukocyte Esterase 1+ /uL (Negative) Urine RBC <1 /hpf (0 - 4) Urine Microscopic WBC 8 /HPF (0-5) Urine Squamous Epithelial Cells Few /hpf (<5) Urine Bacteria None seen /hpf (None Seen) Urine Glucose 1+ mg/dL (Normal) Eosinophils (%) (Auto) 1.8 % (0.0-7.0) Eosinophils # (Auto) 0.2 10 ^3/uL (0-0.8) Basophils # (Auto) 0.2 10 ^3/uL (0-0.2) Test 08/23/25 03:11 08/23/25 01:08 POC Glucose 208 mg/dl (70-106) Reticulocyte Count (auto) 5.99 % (0.5-1.5) Troponin I High Sensitivity 11 ng/L (</=34) Other Laboratory Tests 08/27/25 05:14 Brief Hx & Hospital Course: 59-year-old female with a known history of hypertension, sickle cell anemia presented to the hospital with generalized weakness and also abdominal pain and hypoxia found to have acute sickle cell crisis with a underlying sickle cell anemia. Patient was put on O2 supplementation med nebs as well as IV hydration. Patient has had hyponatremia which is slowly improving and metabolic acidosis improved as well. Patient does have known history of CKD stage 4. Condition at Discharge: Stable Final Diagnosis/Problems List 59-year-old female with a known history of hypertension, sickle cell anemia presented to the hospital with generalized weakness and also abdominal pain and hypoxia found to have 1. Acute sickle cell crisis with the underlying sickle cell anemia 2. Acute hypoxic respiratory failure secondary to sickle cell crisis, continue O2 supplementation has been as IV hydration 3. Acute kidney injury suspected secondary to vasomotor nephropathy/ATN with the underlying CKD stage 4 4. Hypertensive urgency 5. Metabolic acidosis secondary to acute kidney injury 6. Normocytic anemia 7. Hyper natremia, improved Discharge Disposition: Home SNF Discharge Will this Physician continue t: No Discharge Instruct/Medications Diet: Cardiac 2g Na,low cholest Activity: See Comment Activity comment: No driving, no signing legal documents, no playing on machinery while on narcotics. Follow Up/Referral: Please follow up with the PCP in 1-2 weeks Follow up with the Hematology for sickle cell in 1-2 weeks Follow up with the Nephrology with a repeat BMP in one week Medications: Medication as prescribed and reconciled. Hold losartan, Scheduled Allopurinol (Allopurinol), 100 MG PO DAILY, (Reported) Amlodipine Besylate (Norvasc Tablet), 10 MG PO DAILY Calcitriol (Calcitriol), 0.25 MCG PO DAILY, (Reported) Folic Acid (Folic Acid), 1 MG PO DAILY, (Reported) Hydroxyurea (Hydroxyurea), 500 MG PO DAILY, (Reported) Metoprolol Tartrate (Lopressor), 50 MG PO BID Scheduled PRN Albuterol Sulfate (Albuterol Sulfate), 2 MG PO Q6HP PRN for BREAKTHROUGH PAIN, (Reported) Hydrocodone-Acetaminophen (Hydrocodone Bitartrate/AC 5-325 mg), 1 TAB PO Q6HP PRN Miscellaneous Medications Budesonide-Formoterol Fumarate (Breyna 160-4.5 Mcg/Act), 1 AER IN, (Reported) Cholecalciferol (Vitamin D), 5,000 UNIT OR, (Reported) Epoetin Tres (Epogen), 2,000 UNIT IV, (Reported) Prednisone (Prednisone), 20 MG PO, (Reported) Discontinued Medications Losartan Potassium (Losartan Potassium), 1 TAB PO DAILY, (Reported) Discharge Statement: "Patient was advised to return to the ER or call 911 if any headaches, dizziness, shortness of breath, chest pain, abdominal pain, bleeding, fevers, or worsening of medical condition. Patient was counseled about treatment plan, medications, possible side effects, patientverbalized understanding. All questions were answered to the best of my ability. This discharge took greater then 30 minutes in planning, reviewing documentation, counseling the patient, and discussing with other team members." ASSESSMENT ASSESSMENT Assessment 59-year-old female with a known history of hypertension, sickle cell anemia presented to the hospital with generalized weakness and also abdominal pain and hypoxia found to have 1. Acute sickle cell crisis with the underlying sickle cell anemia 2. Acute hypoxic respiratory failure secondary to sickle cell crisis, continue O2 supplementation has been as IV hydration 3. Acute kidney injury suspected secondary to vasomotor nephropathy/ATN with the underlying CKD stage 4 4. Hypertensive urgency 5. Metabolic acidosis secondary to acute kidney injury 6. Normocytic anemia 7. Hyper natremia, improved Date of Service: Aug 28, 2025 Billing Provider: AYDIN GORDON MD Common Visit Codes: 78151-QPD/OBS DISCH DAY >30min AYDIN GORDON MD Aug 28, 2025 16:40
[2025-08-28 17:58] VITALS: BP 121/68; PULSE 53; TEMP 37.3
[2025-08-28 18:04] LABS: Hematocrit 24.1 % (36.0-46.0); Hemoglobin 7.8 g/dL (12.2-16.2); Mean Corpuscular Hemoglobin 35.9 pg (28.0-32.0); Mean Corpuscular Volume 110.3 fL (80.0-100.0)
[2025-08-28 18:05] LABS: Nucleated Red Blood Cells % 6.6 %
[2025-08-28 18:37] LABS: Alanine Aminotransferase 23 U/L (7-40); Albumin 3.9 g/dL (3.2-4.8); Anion Gap 14 (5-15); BUN/Creatinine Ratio 17.4 (10.0-20.0); Bilirubin, Total 0.7 mg/dL (0.2-1.0); Calcium 9.7 mg/dL (8.7-10.4); Carbon Dioxide 22 mmol/L (20-31); Glucose 100 mg/dL (74-106); Potassium 4.5 mmol/L (3.5-5.1); Total Protein 6.7 g/dL (5.7-8.2)
[2025-08-28 19:22] LABS: Alkaline Phosphatase 152 U/L (46-116); Blood Urea Nitrogen 52 mg/dL (9-23); Chloride 110 mmol/L (98-107); Sodium 146 mmol/L (136-145)
[2025-08-28 19:55] LABS: Anisocytosis Moderate; Macrocytosis Marked; Stomatocytes Few; Tear Drop Cells FEW
== END 2025-08-28 19:46 | disposition home or self-care (01) | DRG 811 ==
LOC: ER 22:43 → EDBD 22:43 → OVERFLOW 08-23 04:29 → TELE-EAST 08-23 22:10
PROVIDERS: ADMIT Internal Medicine; ATTEND Internal Medicine
DX: D57.00 Hb-SS disease with crisis, unspecified (principal); J96.01 Acute respiratory failure with hypoxia; N17.0 Acute kidney failure with tubular necrosis; E87.20 Acidosis, unspecified; N18.4 Chronic kidney disease, stage 4 (severe); E87.0 Hyperosmolality and hypernatremia; I16.0 Hypertensive urgency; E87.5 Hyperkalemia; I12.9 Hypertensive chronic kidney disease with stage 1 through stage 4 chronic kidney disease, or unspecified chronic kidney disease; D64.9 Anemia, unspecified; Z79.899 Other long term (current) drug therapy
CPT/HCPCS: 36415; 80048; 80053; 81001; 82962; 84484; 85007; 85025; 85027; 85045; 86850; 86900; 86901; 94640; 99291; 99292; G0378; J1815; J2405